=== PATIENT | female | born 1950 | race Caucasian/White ===

== ENCOUNTER 2018-05-09 16:43 | Emergency (ER) | payer MEDICARE, MEDICAID ==
[~2018-05-09] VITALS: Ht 157.5 cm; Wt 77.0 kg
[~2018-05-09 16:43] MED LIST: AMLO5TAB PO; CARV-50 PO; DOXE75CA3 PO; HYDR-569 PO; LOSA100T3 PO; MECL-111 PO; OMEP40CA37 PO; PREVCR VG; TRIA0.1232 PO
[2018-05-09] MEDS ORDERED: LIDOcaine 5% patch TP ONE (19:50)
[2018-05-09] MEDS ORDERED: acetaminophen 325mg tablet PO ONE (19:50)
[2018-05-09] MEDS ORDERED: ibuprofen tablet 400 MG TABLET PO ONE (19:50)
[2018-05-09] MEDS ORDERED: HYDR-3965 PO (20:09)
[2018-05-09] MEDS ORDERED: LIDO700A32 TOP (20:09)
[2018-05-09 20:27] VITALS: BP 166/81
== END 2018-05-09 21:27 | disposition home or self-care (01) ==
LOC: ER 16:44
DX: R07.81 Pleurodynia (principal); Z88.0 Allergy status to penicillin; Z88.2 Allergy status to sulfonamides; Z88.8 Allergy status to other drugs, medicaments and biological substances; Z79.899 Other long term (current) drug therapy
CPT/HCPCS: 71046; 99284